=== PATIENT | male | born 1985 | race Two or more races ===

== ENCOUNTER 2022-03-09 14:11 | Outpatient (CLI) | payer OTHER | END 2022-03-09 14:18 | disposition home or self-care (01) | LOC: RAD 14:11 | PROVIDERS: ATTEND Acupuncturist | DX: R07.81 Pleurodynia (principal); R10.9 Unspecified abdominal pain ==

== ENCOUNTER 2022-07-21 21:15 | Outpatient (CLI) | payer OTHER | END 2022-07-21 23:00 | disposition home or self-care (01) | LOC: LAB 21:15 | DX: Z20.818 Contact with and (suspected) exposure to other bacterial communicable diseases (principal); Z20.828 Contact with and (suspected) exposure to other viral communicable diseases ==